=== PATIENT | male | born 1965 | race Caucasian/White ===

== ENCOUNTER 2018-07-20 19:29 | Inpatient (IN) | payer OTHER ==
[2018-07-20] MEDS ORDERED: LORazepam 2 MG/ML SDV VIAL IVPUSH ONE ×3 (19:35→23:00)
[2018-07-20] MEDS ORDERED: chlordiazePOXIDE HCL 25 MG CAPSULE PO ONE (19:36)
--- NOTE | 2018-07-20 19:39 | PDOC ---
History of Present Illness - General Stated Complaint: SEIZURE Time Seen by Provider: 07/20/18 19:31 - History of Present Illness Initial Comments: 53 year old male with PMH of EtOH abuse and seizure history (on Keppra) with history of withdrawal symptoms as well (denies hospitalization for these) presenting for witnessed seizure at [facility]. He presented there to be detoxed and began seizing in the hallway while in a chair that lasted for 6 minutes and . He states he did not fall today but did fall two weeks ago and points to a large left sided scalp hematoma. States he had a head CT at that time and did not have any sign of bleeding inside of his head. He also states that he hasn't taken his Keppra in 2 weeks. His last seizure he states was 6 months ago. His last drink was three days ago. He was not seizing on presentation to our ED but was tremulous. present for alcohol detox with current tremors noted upon rest. Denies fevers, chills, nausea, vomiting, diarrhea, SOB, or other symptoms. 07/20/18 19:36 Past History - Past Medical History Allergies/Adverse Reactions: Allergies Allergy/AdvReac Type Severity Reaction Status Date / Time No Known Allergies Allergy Verified 07/20/18 20:58 Home Medications: Ambulatory Orders Levetiracetam [Keppra] 250 mg PO DAILY 07/20/18 Review of Systems - Review of Systems Constitutional: No: Chills, Diaphoresis, Fever, Loss of Appetite HEENTM: No: Blurred Vision, Tearing, Recent change in vision Respiratory: No: Cough, Orthopnea, Shortness of Breath Cardiac (ROS): No: Chest Pain, Edema, Irregular Heart Rate ABD/GI: No: Diarrhea, Nausea, Vomiting : No: Burning, Dysuria Musculoskeletal: No: Joint Pain, Joint Swelling Integumentary: Yes: Lesions, Lumps Neurological: Yes: Seizure. No: Headache, Numbness, Paresthesia Hematologic/Lymphatic: Yes: Easy Bleeding *Physical Exam - Physical Exam General Appearance: Yes: Nourished, Appropriately Dressed, Apparent Distress, Mild Distress HEENT: positive: EOMI, ABELARDO, Normal Voice. negative: Normal ENT Inspection ( Right eye lateral scleral injection with EOM intact and gross visual suarez intact.) Neck: positive: Trachea midline, Normal Thyroid, Supple. negative: Tender, Rigid Respiratory/Chest: positive: Lungs Clear, Normal Breath Sounds. negative: Chest Tender, Respiratory Distress Cardiovascular: positive: Regular Rhythm, Tachycardia. negative: Regular Rate Gastrointestinal/Abdominal: positive: Normal Bowel Sounds, Flat, Soft. negative : Tender Lymphatic: negative: Adenopathy, Tenderness Extremity: positive: Normal Inspection, Normal Range of Motion. negative: Tender Integumentary: positive: Normal Color, Dry, Warm Neurologic: positive: Fully Oriented, Alert, Normal Mood/Affect, Normal Response , Motor Strength 5/5, Other (tremulous) ED Treatment Course - LABORATORY CBC & Chemistry Diagram: 07/20/18 20:15 07/20/18 20:15 - RADIOLOGY Radiology Studies Ordered: Category Date Time Status HEAD CT (STROKE) [CT] Stat CT Scan 07/20/18 19:31 Ordered Medical Decision Making - Medical Decision Making 53 year old male with history of ETOH abuse and seizures admitting to last drink 3 days ago and last dose of Keppra was two weeks ago because he ran out. He hasn't seized in our ED. His potassium was 3.0. He was keppra loaded 1 gram, given Ativan 2 + 2 IV for tremulousness and 50 of librium PO. Highest concern was for withdrawal seizures so patient discussed with Latoya and brought in for withdrawal. 07/20/18 21:43 *DC/Admit/Observation/Transfer Diagnosis at time of Disposition: Seizures Alcohol withdrawal Qualifiers: Complication of substance-induced condition: uncomplicated Qualified Code(s): F10.230 - Alcohol dependence with withdrawal, uncomplicated - Discharge Dispostion Condition at time of disposition: Stable Decision to Admit order: Yes - Referrals - Patient Instructions - Post Discharge Activity
[2018-07-20] MEDS ORDERED: levETIRAcetam 500 MG/5 ML INJECTION VIAL IVPB ONE (19:40)
[2018-07-20] MEDS ORDERED: LORazepam 2 MG/ML SDV VIAL ONE ×3 (19:41→23:56)
--- NOTE | 2018-07-20 20:07 | PDOC ---
Attending Attestation - HPI HPI: 07/20/18 20:43 The patient is a 53 year old male with a PMH of EtOH abuse and seizure (on Keppra) presents to the ER s/p witnessed seizure at [facility] prior to arrival. [facility] reports the patient was seizing in his chair and returned to his baseline after approximately 6 minutes. Patient denies falling or head trauma, but unknown if the history is accurate. Patient is currently tremulous in the ER. Patient notes his last alcoholic drink was 3 days ago. He also reports his last dose of keppra was 2 weeks ago. He states he fell 2 weeks ago and now has a hematoma on the right forehead. Allergies: NKDA Social Hx: Alcohol abuse. No reported drug or cigarette use. Surgical Hx: None reported <Jeimy Esparza - Last Filed: 07/20/18 20:53> - Resident Resident Name: Dimitris Bo - ED Attending Attestation I have performed the following: I have examined & evaluated the patient, The case was reviewed & discussed with the resident, I agree w/resident's findings & plan - Physicial Exam PE: 07/20/18 23:27 Agree with resident's exam - Critical Care Time Total Critical Care Time: 90 Critical Care Statement: The care of this patient involved high complexity decision making to prevent further life threatening deterioration of the patient 's condition and/or to evaluate & treat vital organ system(s) failure or risk of failure. - Medical Decision Making 07/20/18 23:27 53-year-old male who appears older than stated age with witnessed seizure at the alcohol detox facility while attempting to register CT scan of the brain showed no acute traumatic injury Patient arrived tachycardic and hypertensive with obvious tremor consistent with alcohol withdrawal syndrome Ativan 2 mg IV push given 3 as well as Librium 50 mg by mouth and a banana bag Patient admitted to medical service to a monitored bed for further management <Rebecca Marsh - Last Filed: 07/20/18 23:28>
[2018-07-20 20:16] VITALS: BMI 32.8
[2018-07-20 20:36] LABS: EOS % 0.4 % (0-4.5); HEMATOCRIT 35.5 % (35.4-49); HEMOGLOBIN 11.8 GM/dL (11.7-16.9); MCH 25.9 pg (25.7-33.7); MCHC 33.1 g/dl (32.0-35.9); MEAN CELL VOLUME 78.3 fl (80-96); MEAN PLT VOLUME 8.4 fl (7.5-11.1); PLATELET COUNT 30 K/MM3 (134-434); RBC 4.54 M/mm3 (4.00-5.60); RDW 20.7 % (11.9-15.9)
[2018-07-20 20:47] LABS: LYMPH % 8.1 % (8-40); MONO % 12.5 % (3.8-10.2); NEUT % 77.7 % (42.8-82.8)
[2018-07-20 20:50] LABS: WHITE BLOOD COUNT 3.3 K/mm3 (4.0-10.0)
[2018-07-20] MEDS ORDERED: ACETAMINOPHEN 500 MG TABLET (FP) PO ONE (20:50)
[2018-07-20] MEDS ORDERED: ACETAMINOPHEN 325 MG TABLET (FP) ONE (20:54)
[2018-07-20 20:58] LABS: ALBUMIN 3.1 g/dl (3.4-5.0); ALK PHOS 127 U/L (45-117); ANION GAP 18 MMOL/L (8-16); BILIRUBIN,TOTAL 3.2 mg/dL (0.2-1); BLOOD UREA NITROGEN 6 mg/dL (7-18); CALCIUM 8.4 mg/dL (8.5-10.1); CHLORIDE 93 mmol/L (98-107); CO2 21 mmol/L (21-32); CREATININE 0.8 mg/dL (0.55-1.3); GLUCOSE,RANDOM 118 mg/dL (74-106); SGOT/AST 188 U/L (15-37); SGPT/ALT 55 U/L (13-61); SODIUM 132 mmol/L (136-145); TOT PROT 7.2 g/dl (6.4-8.2)
[2018-07-20 21:05] LABS: ANISOCYTOSIS 2+; PLATELET ESTIMATE DECREASED; TARGET CELLS FEW
[2018-07-20] MEDS ORDERED: FOLIC ACID INJECTION - 1 MG, THIAMINE HCL 100 MG, MULTIVIT INJECTION ADULT 10 ML in SOD... IVPB ONE (21:23)
[2018-07-20] MEDS ORDERED: POTASSIUM CHLORIDE TABS 20 MEQ TABLET.ER (FP) PO ONE ×2 (21:23→22:20)
[2018-07-20] MEDS ORDERED: SODIUM CHLORIDE 0.9% 500 ML INFUS.BAG IV ONE (21:25)
[2018-07-20 21:31] LABS: INR 1.18 (0.83-1.09)
--- NOTE | 2018-07-20 21:44 | HP ---
Admitting History and Physical - Primary Care Physician PCP: Chela Klein - Admission History of Present Illness: 53 year old male with PMH of EtOH abuse and seizure history (on Keppra) with history of withdrawal symptoms as well (denies hospitalization for these) presenting for witnessed seizure at [facility]. He presented there to be detoxed and began seizing in the hallway while in a chair that lasted for 6 minutes and . He states he did not fall today but did fall two weeks ago and points to a large left sided scalp hematoma. States he had a head CT at that time and did not have any sign of bleeding inside of his head. He also states that he hasn't taken his Keppra in 2 weeks. His last seizure he states was 6 months ago. His last drink was three days ago. He was not seizing on presentation to our ED but was tremulous. present for alcohol detox with current tremors noted upon rest. - Smoking History Smoking history: Current every day smoker Have you smoked in the past 12 months: Yes Aproximately how many cigarettes per day: 20 - Alcohol/Substance Use Hx Alcohol Use: Yes Home Medications - Allergies Allergies/Adverse Reactions: Allergies Allergy/AdvReac Type Severity Reaction Status Date / Time No Known Allergies Allergy Verified 07/20/18 20:58 - Home Medications Home Medications: Ambulatory Orders Levetiracetam [Keppra] 250 mg PO DAILY 07/20/18 Physical Examination Vital Signs: Vital Signs Temperature 98.9 F 07/20/18 19:29 Pulse Rate 118 H 07/20/18 19:29 Respiratory Rate 18 07/20/18 19:29 Blood Pressure 181/93 H 07/20/18 19:29 O2 Sat by Pulse Oximetry (%) 99 07/20/18 20:34 Constitutional: Yes: Calm HENT: Yes: Other (bump on R frontal, fore head) Cardiovascular: Yes: Regular Rate and Rhythm, Tachycardia Respiratory: Yes: CTA Bilaterally Gastrointestinal: Yes: Normal Bowel Sounds Extremities: Yes: WNL Edema: Yes Neurological: Yes: Alert Labs: CBC, BMP 07/20/18 20:15 07/20/18 20:15 Imaging - Results Cat Scan: Report Reviewed Problem List - Problems (1) ETOH abuse Assessment/Plan: monitor librium detox consult Code(s): F10.10 - ALCOHOL ABUSE, UNCOMPLICATED (2) EtOH dependence Code(s): F10.20 - ALCOHOL DEPENDENCE, UNCOMPLICATED (3) Acute drug withdrawal syndrome Assessment/Plan: prn ativan Code(s): F19.239 - OTH PSYCHOACTIVE SUBSTANCE DEPENDENCE WITH WITHDRAWAL, UNSP Assessment/Plan Laboratory Tests 07/20/18 07/20/18 07/20/18 20:15 20:15 20:15 WBC 3.3 L RBC 4.54 Hgb 11.8 Hct 35.5 MCV 78.3 L MCH 25.9 MCHC 33.1 RDW 20.7 H Plt Count 30 L* MPV 8.4 Absolute Neuts (auto) 2.6 Neutrophils % 77.7 Lymphocytes % 8.1 Monocytes % 12.5 H Eosinophils % 0.4 Basophils % 1.0 Nucleated RBC % 0 Platelet Estimate Decreased Platelet Comment No clumping noted Anisocytosis 2+ Target Cells Few PT with INR INR Sodium 132 L Potassium 3.0 L Chloride 93 L Carbon Dioxide 21 Anion Gap 18 H BUN 6 L Creatinine 0.8 Creat Clearance w eGFR > 60 Random Glucose 118 H Lactic Acid 10.2 H* Calcium 8.4 L Total Bilirubin 3.2 H AST 188 H ALT 55 Alkaline Phosphatase 127 H Total Protein 7.2 Albumin 3.1 L Alcohol, Quantitative 37.4 H 07/20/18 20:50 WBC RBC Hgb Hct MCV MCH MCHC RDW Plt Count MPV Absolute Neuts (auto) Neutrophils % Lymphocytes % Monocytes % Eosinophils % Basophils % Nucleated RBC % Platelet Estimate Platelet Comment Anisocytosis Target Cells PT with INR 14.00 H INR 1.18 H Sodium Potassium Chloride Carbon Dioxide Anion Gap BUN Creatinine Creat Clearance w eGFR Random Glucose Lactic Acid Calcium Total Bilirubin AST ALT Alkaline Phosphatase Total Protein Albumin Alcohol, Quantitative Active Medications Generic Name Dose Route Start Last Admin Trade Name Freq PRN Reason Stop Dose Admin Folic Acid 1 mg/ Thiamine HCl 1,000 mls @ 125 mls/hr 07/20/18 21:23 100 mg/ Multivitamins/Minerals IVPB 07/21/18 05:22 10 ml/ Sodium Chloride ONCE ONE Active Medications Generic Name Dose Route Start Last Admin Trade Name Freq PRN Reason Stop Dose Admin Chlordiazepoxide HCl 50 mg 07/21/18 00:00 07/21/18 12:43 Librium - PO 50 mg Q6HPO EDITH Administration Folic Acid 1 mg 07/21/18 10:00 07/21/18 09:49 Folic Acid - PO 1 mg DAILY EDITH Administration Levetiracetam 250 mg 07/21/18 10:00 07/21/18 09:49 Keppra - PO 250 mg DAILY EDITH Administration Thiamine HCl 100 mg 07/21/18 10:00 07/21/18 09:49 Vitamin B1 - PO 100 mg DAILY EDITH Administration
[2018-07-20 22:03] LABS: MAGNESIUM 1.7 mg/dL (1.8-2.4)
[2018-07-20] MEDS: chlordiazePOXIDE HCL 25 MG CAPSULE PO SCH (22:20)
[2018-07-21] MEDS ORDERED: LORazepam 2 MG/ML SDV VIAL ONE (06:26)
[2018-07-21 07:53] LABS: BASO % 1.3 % (0-2.0); EOS % 0.8 % (0-4.5); HEMATOCRIT 34.7 % (35.4-49); HEMOGLOBIN 11.6 GM/dL (11.7-16.9); LYMPH % 39.6 % (8-40); MCH 25.9 pg (25.7-33.7); MCHC 33.4 g/dl (32.0-35.9); MEAN CELL VOLUME 77.5 fl (80-96); MEAN PLT VOLUME 8.7 fl (7.5-11.1); NEUT % 48.3 % (42.8-82.8); RBC 4.48 M/mm3 (4.00-5.60); RDW 20.6 % (11.9-15.9); WHITE BLOOD COUNT 2.6 K/mm3 (4.0-10.0)
[2018-07-21 07:59] LABS: PLATELET COUNT 22 K/MM3 (134-434)
[2018-07-21 08:00] LABS: ALBUMIN 2.9 g/dl (3.4-5.0); ALK PHOS 110 U/L (45-117); ANION GAP 9 MMOL/L (8-16); BILIRUBIN,TOTAL 4.8 mg/dL (0.2-1); BLOOD UREA NITROGEN 8 mg/dL (7-18); CALCIUM 7.9 mg/dL (8.5-10.1); CHLORIDE 97 mmol/L (98-107); CO2 28 mmol/L (21-32); CREATININE 0.7 mg/dL (0.55-1.3); GLUCOSE,RANDOM 84 mg/dL (74-106); SGOT/AST 154 U/L (15-37); SGPT/ALT 47 U/L (13-61); SODIUM 134 mmol/L (136-145); TOT PROT 6.8 g/dl (6.4-8.2)
[2018-07-21] MEDS ORDERED: chlordiazePOXIDE HCL 25 MG CAPSULE ONE ×2 (08:46→12:40)
[2018-07-21] MEDS: chlordiazePOXIDE HCL 25 MG CAPSULE PO SCH ×3 (08:49→18:31)
[2018-07-21 09:09] LABS: PH,URINE 7.5 (5.0-8.0); URINE APPEARANCE Clear; URINE BILIRUBIN 1+ (<2.0 mg/dL); URINE COLOR Dark yellow; URINE GLUCOSE (UA) Negative (NEGATIVE); URINE KETONE Negative (NEGATIVE); URINE LEUK ESTERASE Negative (NEGATIVE); URINE NITRITE Negative (NEGATIVE); URINE PROTEIN 2+ (NEGATIVE); URINE UROBILINOGEN 4.0 E.U/dl mg/dL (0.2-1.0)
[2018-07-21] MEDS: THIAMINE HCL 100 MG TABLET (FP) PO SCH (09:49)
[2018-07-21] MEDS: FOLIC ACID 1 MG TABLET (FP) PO SCH (09:49)
[2018-07-21] MEDS: levETIRAcetam 250 MG TABLET (FP) PO SCH (09:49)
--- NOTE | 2018-07-21 12:31 | CONSULT ---
Consultation: REQUESTING PROVIDER: Dr Yelena Klein CONSULT REQUEST: We have been asked to medically evaluate this patient for thrombocytopenia. HISTORY OF PRESENT ILLNESS: 53 yo male with a history of ETOH abuse, seizure disorder, sent from [facility] due to seizure at facility resulting in fall and head injury. As per patient last drink was three days ago, and he has not taken his seizure medication for two weeks. Patient was given ativan, and loaded with keppra. FOunf to thrombocytopenic and leukopenic. Denies fever, chills, n, v, d. Admits to hand tremors. REVIEW OF SYSTEMS: CONSTITUTIONAL: Absent: fever, chills, diaphoresis, generalized weakness, malaise, loss of appetite, weight change HEENT: Absent: rhinorrhea, nasal congestion, throat pain, throat swelling, difficulty swallowing, mouth swelling, ear pain, eye pain, visual changes CARDIOVASCULAR: Absent: chest pain, syncope, palpitations, irregular heart rate, lightheadedness , peripheral edema RESPIRATORY: Absent: cough, shortness of breath, dyspnea with exertion, orthopnea, wheezing, stridor, hemoptysis GASTROINTESTINAL: Absent: abdominal pain, abdominal distension, nausea, vomiting, diarrhea, constipation, melena, hematochezia GENITOURINARY: Absent: dysuria, frequency, urgency, hesitancy, hematuria, flank pain, genital pain MUSCULOSKELETAL: Absent: myalgia, arthralgia, joint swelling, back pain, neck pain SKIN: Absent: rash, itching, pallor HEMATOLOGIC/IMMUNOLOGIC: Absent: easy bleeding, easy bruising, lymphadenopathy, frequent infections ENDOCRINE: Absent: unexplained weight gain, unexplained weight loss, heat intolerance, cold intolerance NEUROLOGIC: Absent: headache, focal weakness or paresthesias, dizziness, unsteady gait, seizure, mental status changes, bladder or bowel incontinence PSYCHIATRIC: Absent: anxiety, depression, suicidal or homicidal ideation, hallucinations. PHYSICAL EXAMINATION Vital Signs - 24 hr 07/20/18 07/20/18 07/21/18 19:29 20:34 04:03 Temperature 98.9 F Pulse Rate 118 H Pulse Rate [ 108 H Right] Respiratory 18 20 Rate Blood Pressure 181/93 H Blood Pressure 156/99 [Left Arm] O2 Sat by Pulse 97 99 99 Oximetry (%) 07/21/18 07/21/18 07:18 11:03 Temperature 99.5 F Pulse Rate Pulse Rate [ 114 H Right] Respiratory 18 18 Rate Blood Pressure Blood Pressure 155/89 [Left Arm] O2 Sat by Pulse 99 99 Oximetry (%) GENERAL: Awake, alert, and fully oriented, in no acute distress. HEAD:lare right hematoma on forhean EYES: Pupils equal, round and reactive to light, extraocular movements intact, sclera anicteric, conjunctiva clear. No lid lag. EARS, NOSE, THROAT: Ears normal, nares patent, oropharynx clear without exudates. Moist mucous membranes. NECK: Normal range of motion, supple without lymphadenopathy, JVD, or masses. LUNGS: Breath sounds equal, clear to auscultation bilaterally. No wheezes, and no crackles. No accessory muscle use. HEART: Regular rate and rhythm, normal S1 and S2 without murmur, rub or gallop. ABDOMEN: globose abdomen; MUSCULOSKELETAL: Normal range of motion at all joints. No bony deformities or tenderness. No CVA tenderness. UPPER EXTREMITIES: 2+ pulses, warm, well-perfused. No cyanosis. No clubbing. Cap refill <2 seconds. No peripheral edema. LOWER EXTREMITIES: 2+ pulses, warm, well-perfused. No calf tenderness. No peripheral edema. NEUROLOGICAL: tremulos bilateral hands; PSYCHIATRIC: Cooperative. Good eye contact. Appropriate mood and affect. SKIN: Warm, dry, normal turgor, no rashes or lesions noted. Laboratory Results - last 24 hr 07/20/18 07/20/18 07/20/18 20:15 20:15 20:15 WBC 3.3 L RBC 4.54 Hgb 11.8 Hct 35.5 MCV 78.3 L MCH 25.9 MCHC 33.1 RDW 20.7 H Plt Count 30 L* MPV 8.4 Absolute Neuts (auto) 2.6 Neutrophils % 77.7 Lymphocytes % 8.1 Monocytes % 12.5 H Eosinophils % 0.4 Basophils % 1.0 Nucleated RBC % 0 Platelet Estimate Decreased Platelet Comment No clumping noted Anisocytosis 2+ Target Cells Few PT with INR INR Sodium 132 L Potassium 3.0 L Chloride 93 L Carbon Dioxide 21 Anion Gap 18 H BUN 6 L Creatinine 0.8 Creat Clearance w eGFR > 60 Random Glucose 118 H Lactic Acid 10.2 H* Calcium 8.4 L Phosphorus 3.0 Magnesium 1.7 L Total Bilirubin 3.2 H AST 188 H ALT 55 Alkaline Phosphatase 127 H Total Protein 7.2 Albumin 3.1 L Urine Color Urine Appearance Urine pH Ur Specific [place] Urine Protein Urine Glucose (UA) Urine Ketones Urine Blood Urine Nitrite Urine Bilirubin Urine Urobilinogen Ur Leukocyte Esterase Urine WBC (Auto) Urine RBC (Auto) Alcohol, Quantitative 37.4 H 07/20/18 07/21/18 07/21/18 20:50 06:00 06:46 WBC 2.6 L RBC 4.48 Hgb 11.6 L Hct 34.7 L MCV 77.5 L MCH 25.9 MCHC 33.4 RDW 20.6 H Plt Count 22 L* D MPV 8.7 Absolute Neuts (auto) 1.3 L Neutrophils % 48.3 D Lymphocytes % 39.6 D Monocytes % 10.0 Eosinophils % 0.8 D Basophils % 1.3 Nucleated RBC % 0 Platelet Estimate Platelet Comment Anisocytosis Target Cells PT with INR 14.00 H INR 1.18 H Sodium 134 L Potassium 3.0 L Chloride 97 L Carbon Dioxide 28 Anion Gap 9 BUN 8 Creatinine 0.7 Creat Clearance w eGFR > 60 Random Glucose 84 Lactic Acid Calcium 7.9 L Phosphorus Magnesium Total Bilirubin 4.8 H AST 154 H ALT 47 Alkaline Phosphatase 110 Total Protein 6.8 Albumin 2.9 L Urine Color Urine Appearance Urine pH Ur Specific [place] Urine Protein Urine Glucose (UA) Urine Ketones Urine Blood Urine Nitrite Urine Bilirubin Urine Urobilinogen Ur Leukocyte Esterase Urine WBC (Auto) Urine RBC (Auto) Alcohol, Quantitative 07/21/18 07:42 WBC RBC Hgb Hct MCV MCH MCHC RDW Plt Count MPV Absolute Neuts (auto) Neutrophils % Lymphocytes % Monocytes % Eosinophils % Basophils % Nucleated RBC % Platelet Estimate Platelet Comment Anisocytosis Target Cells PT with INR INR Sodium Potassium Chloride Carbon Dioxide Anion Gap BUN Creatinine Creat Clearance w eGFR Random Glucose Lactic Acid Calcium Phosphorus Magnesium Total Bilirubin AST ALT Alkaline Phosphatase Total Protein Albumin Urine Color Dark yellow Urine Appearance Clear Urine pH 7.5 Ur Specific [place] 1.015 Urine Protein 2+ H Urine Glucose (UA) Negative Urine Ketones Negative Urine Blood 2+ H Urine Nitrite Negative Urine Bilirubin 1+ H Urine Urobilinogen 4.0 e.u/dl Ur Leukocyte Esterase Negative Urine WBC (Auto) <1 Urine RBC (Auto) 10 Alcohol, Quantitative Active Medications Generic Name Dose Route Start Last Admin Trade Name Freq PRN Reason Stop Dose Admin Chlordiazepoxide HCl 50 mg 07/21/18 00:00 07/21/18 08:49 Librium - PO 50 mg Q6HPO EDITH Administration Folic Acid 1 mg 07/21/18 10:00 07/21/18 09:49 Folic Acid - PO 1 mg DAILY EDITH Administration Levetiracetam 250 mg 07/21/18 10:00 07/21/18 09:49 Keppra - PO 250 mg DAILY EDITH Administration Thiamine HCl 100 mg 07/21/18 10:00 07/21/18 09:49 Vitamin B1 - PO 100 mg DAILY EDITH Administration ASSESSMENT/PLAN: seizure etoh abuse leukopenia lactic acidosis thrombocytopenia hypokalemia -thrombocytopenia and leukopenia most likey due to alcohol use ; secondary to acute toxic effect of alcohol, liver disease, hypersplenism, -abdominal US eval spleen and liver Dispo: We will continue to follow the patient. Thank you for this consultative opportunity. Visit type - Emergency Visit Emergency Visit: Yes ED Registration Date: 07/21/18 Care time: The patient presented to the Emergency Department on the above date and was hospitalized for further evaluation of their emergent condition. - New Patient This patient is new to me today: Yes Date on this admission: 07/22/18 - Critical Care Critical Care patient: No
--- NOTE | 2018-07-21 13:13 | PN ---
Progress Note, Physician - Current Medication List Current Medications: Active Medications Chlordiazepoxide HCl (Librium -) 50 mg PO Q6HPO [facility] Last Admin: 07/21/18 12:43 Dose: 50 mg Folic Acid (Folic Acid -) 1 mg PO DAILY [facility] Last Admin: 07/21/18 09:49 Dose: 1 mg Levetiracetam (Keppra -) 250 mg PO DAILY [facility] Last Admin: 07/21/18 09:49 Dose: 250 mg Thiamine HCl (Vitamin B1 -) 100 mg PO DAILY [facility] Last Admin: 07/21/18 09:49 Dose: 100 mg - Objective Vital Signs: Vital Signs Temperature 99.5 F 07/21/18 11:03 Pulse Rate 114 H 07/21/18 11:03 Respiratory Rate 18 07/21/18 11:03 Blood Pressure 155/89 07/21/18 11:03 O2 Sat by Pulse Oximetry (%) 99 07/21/18 11:03 Constitutional: Yes: No Distress HENT: Yes: Other (bruise /swelling on fore head) Neck: Yes: Supple Cardiovascular: Yes: Regular Rate and Rhythm Respiratory: Yes: CTA Bilaterally Gastrointestinal: Yes: Normal Bowel Sounds Extremities: Yes: WNL Edema: No Peripheral Pulses WNL: Yes Neurological: Yes: Alert Labs: CBC, BMP 07/21/18 06:00 07/21/18 06:46 INR, PTT INR 1.18 (0.83-1.09) H 07/20/18 20:50 Problem List - Problems (1) ETOH abuse Assessment/Plan: monitor librium detox consult Code(s): F10.10 - ALCOHOL ABUSE, UNCOMPLICATED (2) EtOH dependence Code(s): F10.20 - ALCOHOL DEPENDENCE, UNCOMPLICATED (3) Acute drug withdrawal syndrome Assessment/Plan: prn ativan Code(s): F19.239 - OTH PSYCHOACTIVE SUBSTANCE DEPENDENCE WITH WITHDRAWAL, UNSP
--- NOTE | 2018-07-21 16:30 | EKG ---
Test Reason : Blood Pressure : / mmHG Vent. Rate : 113 BPM Atrial Rate : 113 BPM P-R Int : 170 ms QRS Dur : 094 ms QT Int : 350 ms P-R-T Axes : 050 048 053 degrees QTc Int : 480 ms POOR DATA QUALITY, INTERPRETATION MAY BE ADVERSELY AFFECTED Suspect unspecified pacemaker failure SINUS TACHYCARDIA LEFT VENTRICULAR HYPERTROPHY WITH REPOLARIZATION ABNORMALITY ST ELEVATION, CONSIDER EARLY REPOLARIZATION, PERICARDITIS, OR INJURY ABNORMAL ECG NO PREVIOUS ECGS AVAILABLE Confirmed by Luigi Erickson ([id number]) on 07/21/2018 4:30:01 PM Referred By: Confirmed By:Luigi Erickson
--- NOTE | 2018-07-21 19:09 | PN ---
Teaching Attending Note Name of Resident: Juliette Gomes ATTENDING PHYSICIAN STATEMENT I saw and evaluated the patient. I reviewed the resident's note and discussed the case with the resident. I agree with the resident's findings and plan as documented. SUBJECTIVE: Patient seen and examined Hx of alcohol abuse . Last drank 2 days earlier Had seizure Head trauma --2 weeks ago with fall and one week ago Last Vital Signs Temp Pulse Resp BP Pulse Ox 99.8 F H 95 H 18 151/91 96 07/21/18 17:01 07/21/18 17:01 07/21/18 18:24 07/21/18 17:01 07/21/18 18:24 HEENT: DEANGELO, EOM Intactright forehead hematoma Oropharynx: No thrush, No mucositis Neck: Supple Nodes: Without adenopathy Cor: RSR, No murmurs, No gallops Lungs: Clear to P&A Abd: Soft, Normal bowel sound, liver 8 cm below RCM, spleen 2 cm below LCM, pulsatile RCM below liver with bruit testes descended , uncircumcised Ext:No significant edema, left knee ecchymoses and scar Skin: No rashes, Integument intact, numerous tatoos CBC, BMP 07/21/18 06:00 07/21/18 06:46 Current Medications Generic Name Dose Route Start Last Admin Trade Name Freq PRN Reason Stop Dose Admin Chlordiazepoxide HCl 50 mg 07/21/18 00:00 07/21/18 18:31 Librium - PO 50 mg Q6HPO EDITH Administration Folic Acid 1 mg 07/21/18 10:00 07/21/18 09:49 Folic Acid - PO 1 mg DAILY EDITH Administration Levetiracetam 250 mg 07/21/18 10:00 07/21/18 09:49 Keppra - PO 250 mg DAILY EDITH Administration Thiamine HCl 100 mg 07/21/18 10:00 07/21/18 09:49 Vitamin B1 - PO 100 mg DAILY EDITH Administration OBJECTIVE: ASSESSMENT AND PLAN: Impression : Alcohol abuse Thrombocytopenia secondary to acute toxic effect of alcohol, liver disease, hypersplenism, +/_ meds Leukopenia, secondary to acute toxic effect of alcohol, liver disease, hypersplenism, +/_ meds Pulsatile area below liver --R/o aneurysm - review ultrasound Abnormal GB-- GI assessment -HIDA Plan: monitor CBC, coags CT of liver/spleen AFP.
[2018-07-22] MEDS: chlordiazePOXIDE HCL 25 MG CAPSULE PO SCH ×4 (00:01→18:15)
[2018-07-22] MEDS: THIAMINE HCL 100 MG TABLET (FP) PO SCH (10:41)
[2018-07-22] MEDS: FOLIC ACID 1 MG TABLET (FP) PO SCH (10:41)
[2018-07-22] MEDS: levETIRAcetam 250 MG TABLET (FP) PO SCH (10:41)
[2018-07-22] MEDS: LORazepam 1 MG TABLET PO PRN ×2 (14:22→22:05)
--- NOTE | 2018-07-22 16:04 | PN ---
Physical Exam: SUBJECTIVE: Patient seen and examined; no new complainants; less tremulous; was drowsy/sleepy during encounter; s/p librium OBJECTIVE: Vital Signs Period Temp Pulse Resp BP Sys/Boone Pulse Ox Last 24 Hr 98 F-99.8 F 78-114 18-20 136-151/68-96 96-99 GENERAL: drowsy; arsouable HEAD: large hemtoma of right scalp LUNGS: Breath sounds equal, clear to auscultation bilaterally, no wheezes, no crackles, no accessory muscle use. HEART: Regular rate and rhythm, S1, S2 without murmur, rub or gallop. ABDOMEN: globose abdomen with hepatomegaly; bs+ EXTREMITIES: 2+ pulses, warm, well-perfused, no edema. scattered areas of echymosis of left anterior though NEUROLOGICAL: lethargic, will not wake up to follow commands Active Medications Generic Name Dose Route Start Last Admin Trade Name Freq PRN Reason Stop Dose Admin Chlordiazepoxide HCl 50 mg 07/21/18 00:00 07/22/18 12:09 Librium - PO 50 mg Q6HPO EDITH Administration Folic Acid 1 mg 07/21/18 10:00 07/22/18 10:41 Folic Acid - PO 1 mg DAILY EDITH Administration Levetiracetam 250 mg 07/21/18 10:00 07/22/18 10:41 Keppra - PO 250 mg DAILY EDITH Administration Lorazepam 1 mg 07/21/18 20:38 07/22/18 14:22 Ativan - PO 1 mg Q4H PRN Administration AGITATION Thiamine HCl 100 mg 07/21/18 10:00 07/22/18 10:41 Vitamin B1 - PO 100 mg DAILY EDITH Administration ASSESSMENT/PLAN: seizure etoh abuse leukopenia lactic acidosis thrombocytopenia hypokalemia -thrombocytopenia and leukopenia most likely due to alcohol use ;liver disease, hypersplenism, -abdominal US eval spleen and liver showing moderately dense echotexture compatible with hepatocellular disease; -trend LFTS, cbc; stat lab draw -will continue to follow Visit type - Emergency Visit Emergency Visit: Yes ED Registration Date: 07/21/18 Care time: The patient presented to the Emergency Department on the above date and was hospitalized for further evaluation of their emergent condition. - New Patient This patient is new to me today: No - Critical Care Critical Care patient: No
--- NOTE | 2018-07-22 16:55 | PN ---
Progress Note, Physician History of Present Illness: was agitated today as per rn - Current Medication List Current Medications: Active Medications Chlordiazepoxide HCl (Librium -) 50 mg PO Q6HPO [facility] Last Admin: 07/22/18 12:09 Dose: 50 mg Folic Acid (Folic Acid -) 1 mg PO DAILY [facility] Last Admin: 07/22/18 10:41 Dose: 1 mg Levetiracetam (Keppra -) 250 mg PO DAILY [facility] Last Admin: 07/22/18 10:41 Dose: 250 mg Lorazepam (Ativan -) 1 mg PO Q4H PRN PRN Reason: AGITATION Last Admin: 07/22/18 14:22 Dose: 1 mg Thiamine HCl (Vitamin B1 -) 100 mg PO DAILY [facility] Last Admin: 07/22/18 10:41 Dose: 100 mg - Objective Vital Signs: Vital Signs Temperature 98.1 F 07/22/18 14:06 Pulse Rate 114 H 07/22/18 14:06 Respiratory Rate 20 07/22/18 10:46 Blood Pressure 146/96 07/22/18 14:06 O2 Sat by Pulse Oximetry (%) 98 07/22/18 09:00 Constitutional: Yes: No Distress HENT: Yes: Other (bump on forehead) Neck: Yes: Supple Cardiovascular: Yes: Regular Rate and Rhythm Respiratory: Yes: CTA Bilaterally Extremities: Yes: WNL Edema: No Peripheral Pulses WNL: Yes Neurological: Yes: Alert, Oriented Labs: CBC, BMP 07/21/18 06:46 INR, PTT INR 1.18 (0.83-1.09) H 07/20/18 20:50 Problem List - Problems (1) ETOH abuse Assessment/Plan: monitor librium..taper detox consult Code(s): F10.10 - ALCOHOL ABUSE, UNCOMPLICATED (2) EtOH dependence Code(s): F10.20 - ALCOHOL DEPENDENCE, UNCOMPLICATED (3) Acute drug withdrawal syndrome Assessment/Plan: prn ativan Code(s): F19.239 - OTH PSYCHOACTIVE SUBSTANCE DEPENDENCE WITH WITHDRAWAL, UNSP
[2018-07-22 17:38] LABS: BASO % 1.2 % (0-2.0); EOS % 1.1 % (0-4.5); HEMATOCRIT 35.2 % (35.4-49); HEMOGLOBIN 11.7 GM/dL (11.7-16.9); LYMPH % 11.4 % (8-40); MCH 26.1 pg (25.7-33.7); MCHC 33.4 g/dl (32.0-35.9); MEAN CELL VOLUME 78.4 fl (80-96); MEAN PLT VOLUME 8.3 fl (7.5-11.1); MONO % 12.1 % (3.8-10.2); NEUT % 74.2 % (42.8-82.8); PLATELET COUNT 35 K/MM3 (134-434); RDW 20.8 % (11.9-15.9); WHITE BLOOD COUNT 3.7 K/mm3 (4.0-10.0)
[2018-07-22 18:17] LABS: ALBUMIN 2.8 g/dl (3.4-5.0); ALK PHOS 144 U/L (45-117); ANION GAP 10 MMOL/L (8-16); BILIRUBIN,TOTAL 3.6 mg/dL (0.2-1); BLOOD UREA NITROGEN 13 mg/dL (7-18); CALCIUM 8.1 mg/dL (8.5-10.1); CHLORIDE 98 mmol/L (98-107); CO2 27 mmol/L (21-32); CREATININE 0.9 mg/dL (0.55-1.3); GLUCOSE,RANDOM 118 mg/dL (74-106); SGOT/AST 113 U/L (15-37); SGPT/ALT 42 U/L (13-61); SODIUM 135 mmol/L (136-145); TOT PROT 6.9 g/dl (6.4-8.2)
--- NOTE | 2018-07-22 18:23 | PN ---
Teaching Attending Note Name of Resident: Juliette Gomes ATTENDING PHYSICIAN STATEMENT I saw and evaluated the patient. I reviewed the resident's note and discussed the case with the resident. I agree with the resident's findings and plan as documented. SUBJECTIVE:Patient seen and examined Unchanged clinically Somewhat tremulous but no asterixis Last Vital Signs Temp Pulse Resp BP Pulse Ox 98.1 F 114 H 20 146/96 98 07/22/18 14:06 07/22/18 14:06 07/22/18 10:46 07/22/18 14:06 07/22/18 09:00 HEENT: DEANGELO, EOM Intact,conjunctival hemorrhage right eye Cor: RSR, No murmurs, No gallops Lungs: Clear to P&A Ext:No significant edema CBC, BMP 07/22/18 16:45 07/22/18 16:45 Current Medications Generic Name Dose Route Start Last Admin Trade Name Freq PRN Reason Stop Dose Admin Chlordiazepoxide HCl 50 mg 07/21/18 00:00 07/22/18 18:15 Librium - PO 50 mg Q6HPO [facility] Administration Folic Acid 1 mg 07/21/18 10:00 07/22/18 10:41 Folic Acid - PO 1 mg DAILY [facility] Administration Levetiracetam 250 mg 07/21/18 10:00 07/22/18 10:41 Keppra - PO 250 mg DAILY [facility] Administration Lorazepam 1 mg 07/21/18 20:38 07/22/18 14:22 Ativan - PO 1 mg Q4H PRN Administration AGITATION Thiamine HCl 100 mg 07/21/18 10:00 07/22/18 10:41 Vitamin B1 - PO 100 mg DAILY [facility] Administration OBJECTIVE:Impression: Alcohol substance abuse thrombocytopenia leukopenia hypersplenism To continue to monitor CBC, coags Direct toxic effect of alcohol, liver disease and hypersplenism all contributing to cytopenias ASSESSMENT AND PLAN:
[2018-07-22] MEDS: POTASSIUM CHLORIDE TABS 20 MEQ TABLET.ER (FP) PO SCH (18:48)
[2018-07-23] MEDS: chlordiazePOXIDE HCL 25 MG CAPSULE PO SCH ×6 (00:19→23:09)
[2018-07-23 07:13] LABS: ALBUMIN 2.7 g/dl (3.4-5.0); ALK PHOS 108 U/L (45-117); ANION GAP 11 MMOL/L (8-16); BILIRUBIN,TOTAL 4.3 mg/dL (0.2-1); BLOOD UREA NITROGEN 12 mg/dL (7-18); CALCIUM 8.4 mg/dL (8.5-10.1); CHLORIDE 99 mmol/L (98-107); CO2 27 mmol/L (21-32); CREATININE 0.7 mg/dL (0.55-1.3); GLUCOSE,RANDOM 88 mg/dL (74-106); SGOT/AST 86 U/L (15-37); SGPT/ALT 34 U/L (13-61); SODIUM 137 mmol/L (136-145); TOT PROT 6.1 g/dl (6.4-8.2)
[2018-07-23 07:16] LABS: BASO % 2.5 % (0-2.0); EOS % 1.9 % (0-4.5); HEMATOCRIT 32.7 % (35.4-49); HEMOGLOBIN 10.8 GM/dL (11.7-16.9); LYMPH % 13.7 % (8-40); MCHC 33.1 g/dl (32.0-35.9); MEAN CELL VOLUME 78.5 fl (80-96); MEAN PLT VOLUME 8.7 fl (7.5-11.1); MONO % 13.1 % (3.8-10.2); NEUT % 68.8 % (42.8-82.8); RBC 4.16 M/mm3 (4.00-5.60); RDW 20.8 % (11.9-15.9); WHITE BLOOD COUNT 3.2 K/mm3 (4.0-10.0)
[2018-07-23 07:29] LABS: PLATELET COUNT 36 K/MM3 (134-434)
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
[2018-07-23] MEDS: levETIRAcetam 250 MG TABLET (FP) PO SCH (09:00)
[2018-07-23] MEDS: LORazepam 1 MG TABLET PO PRN (09:00)
[2018-07-23] MEDS: THIAMINE HCL 100 MG TABLET (FP) PO SCH (09:01)
[2018-07-23] MEDS: FOLIC ACID 1 MG TABLET (FP) PO SCH (09:01)
[2018-07-23] MEDS: POTASSIUM CHLORIDE TABS 20 MEQ TABLET.ER (FP) PO SCH (09:06)
[2018-07-23] MEDS: chlordiazePOXIDE HCL 25 MG CAPSULE PO PRN ×2 (09:27→13:23)
--- NOTE | 2018-07-23 17:00 | PN ---
Progress Note, Physician History of Present Illness: was agitated today as per rn - Current Medication List Current Medications: Active Medications Chlordiazepoxide HCl (Librium -) 50 mg PO [id number] [facility] Stop: 07/24/18 05:01 Last Admin: 07/23/18 16:15 Dose: 50 mg Chlordiazepoxide HCl (Librium -) 25 mg PO [id number] [facility] Stop: 07/25/18 05:01 Chlordiazepoxide HCl (Librium -) 15 mg PO [id number] [facility] Stop: 07/26/18 05:01 Chlordiazepoxide HCl (Librium -) 25 mg PO Q4H PRN PRN Reason: WITHDRAWAL(CONT SUBST) Stop: 07/26/18 08:32 Last Admin: 07/23/18 13:23 Dose: 25 mg Chlordiazepoxide HCl (Librium -) 10 mg PO [id number] [facility] Stop: 07/27/18 05:01 Folic Acid (Folic Acid -) 1 mg PO DAILY [facility] Last Admin: 07/23/18 09:01 Dose: 1 mg Levetiracetam (Keppra -) 250 mg PO DAILY [facility] Last Admin: 07/23/18 09:00 Dose: 250 mg Potassium Chloride (K-Dur -) 40 meq PO DAILY [facility] Last Admin: 07/23/18 09:06 Dose: 40 meq Thiamine HCl (Vitamin B1 -) 100 mg PO DAILY [facility] Last Admin: 07/23/18 09:01 Dose: 100 mg - Objective Vital Signs: Vital Signs Temperature 99.7 F H 07/23/18 15:00 Pulse Rate 101 H 07/23/18 15:00 Respiratory Rate 18 07/23/18 15:00 Blood Pressure 134/95 07/23/18 15:00 O2 Sat by Pulse Oximetry (%) 95 07/23/18 10:00 Constitutional: Yes: No Distress HENT: Yes: Atraumatic Neck: Yes: Supple Cardiovascular: Yes: Regular Rate and Rhythm Respiratory: Yes: CTA Bilaterally Gastrointestinal: Yes: Normal Bowel Sounds Edema: No Peripheral Pulses WNL: Yes Neurological: Yes: Alert, Oriented Labs: CBC, BMP 07/23/18 05:30 07/23/18 05:30 INR, PTT INR 1.18 (0.83-1.09) H 07/20/18 20:50 Problem List - Problems (1) ETOH abuse Assessment/Plan: monitor librium..taper detox consult Code(s): F10.10 - ALCOHOL ABUSE, UNCOMPLICATED (2) EtOH dependence Code(s): F10.20 - ALCOHOL DEPENDENCE, UNCOMPLICATED (3) Acute drug withdrawal syndrome Assessment/Plan: prn ativan Code(s): F19.239 - OTH PSYCHOACTIVE SUBSTANCE DEPENDENCE WITH WITHDRAWAL, UNSP
[2018-07-24] MEDS: chlordiazePOXIDE HCL 25 MG CAPSULE PO PRN (02:49)
[2018-07-24] MEDS: chlordiazePOXIDE HCL 25 MG CAPSULE PO SCH ×3 (05:54→17:31)
[2018-07-24] MEDS: POTASSIUM CHLORIDE TABS 20 MEQ TABLET.ER (FP) PO SCH (09:36)
[2018-07-24] MEDS: levETIRAcetam 250 MG TABLET (FP) PO SCH (09:36)
[2018-07-24] MEDS: FOLIC ACID 1 MG TABLET (FP) PO SCH (09:37)
[2018-07-24] MEDS: THIAMINE HCL 100 MG TABLET (FP) PO SCH (09:37)
--- NOTE | 2018-07-24 13:50 | PN ---
Physical Exam: SUBJECTIVE: Patient seen and examined; no acute events; platelets slightly trending up OBJECTIVE: Vital Signs Period Temp Pulse Resp BP Sys/Boone Pulse Ox Last 24 Hr 97.7 F-99.7 F 89-101 18-22 134-154/86-99 95 GENERAL: The patient is lethargic; s/p librium HEAD: with large hematoma on right side of forehead LUNGS: Breath sounds equal, clear to auscultation bilaterally, no wheezes, no crackles, no accessory muscle use. HEART: Regular rate and rhythm, S1, S2 without murmur, rub or gallop. ABDOMEN: distended abdomen ; +hepatosplenomegaly EXTREMITIES: 2+ pulses, warm, well-perfused, no edema. NEUROLOGICAL: lethargic; opens eyes to name SKIN: Warm, dry, normal turgor, no rashes or lesions noted Laboratory Results - last 24 hr 07/20/18 07/22/18 20:15 05:30 Hct 33.5 L Folate 1396 Folate Hemolysate 467.7 Levetiracetam None detected Active Medications Generic Name Dose Route Start Last Admin Trade Name Freq PRN Reason Stop Dose Admin Chlordiazepoxide HCl 25 mg 07/24/18 11:00 07/24/18 12:14 Librium - PO 07/25/18 05:01 25 mg [id number] EDITH Administration Chlordiazepoxide HCl 15 mg 07/25/18 11:00 Librium - PO 07/26/18 05:01 [id number] EDITH Chlordiazepoxide HCl 25 mg 07/23/18 08:33 07/24/18 02:49 Librium - PO 07/26/18 08:32 25 mg Q4H PRN Administration WITHDRAWAL(CONT SUBST) Chlordiazepoxide HCl 10 mg 07/26/18 11:00 Librium - PO 07/27/18 05:01 [id number] EDITH Folic Acid 1 mg 07/21/18 10:00 07/24/18 09:37 Folic Acid - PO 1 mg DAILY [facility] Administration Levetiracetam 250 mg 07/21/18 10:00 07/24/18 09:36 Keppra - PO 250 mg DAILY [facility] Administration Potassium Chloride 40 meq 07/22/18 18:45 07/24/18 09:36 K-Dur - PO 40 meq DAILY [facility] Administration Thiamine HCl 100 mg 07/21/18 10:00 07/24/18 09:37 Vitamin B1 - PO 100 mg DAILY [facility] Administration ASSESSMENT/PLAN: This is a 53 year old male with alcohol abuse, seizures, was at [facility] for detox; presented after fall and seizure while at facility; found to be pancytopenic. seizure etoh abuse pancytopenia lactic acidosis hypokalemia -platelets improving; cytopenias due liver disease from alcohol -abdominal US eval spleen and liver showing moderately dense echotexture compatible with hepatocellular disease; -trend LFTS, cbc; coags Visit type - Emergency Visit Emergency Visit: Yes ED Registration Date: 07/21/18 Care time: The patient presented to the Emergency Department on the above date and was hospitalized for further evaluation of their emergent condition. - New Patient This patient is new to me today: No - Critical Care Critical Care patient: No
[2018-07-24 14:08] VITALS: BP 121/83; PULSE 92; TEMP 99.4
--- NOTE | 2018-07-24 15:17 | DS ---
Physical Examination Vital Signs: Vital Signs Temperature 99.4 F 07/24/18 14:00 Pulse Rate 92 H 07/24/18 14:00 Respiratory Rate 20 07/24/18 14:00 Blood Pressure 121/83 07/24/18 14:00 O2 Sat by Pulse Oximetry (%) 95 07/24/18 09:00 Labs: CBC, BMP 07/23/18 05:30 07/23/18 05:30 Discharge Summary Reason For Visit: SEIZURE,ACUTE DRUP WITHDRAWAL SYMDROME Current Active Problems Acute drug withdrawal syndrome (Acute) Alcohol withdrawal (Acute) ETOH abuse (Acute) EtOH dependence (Acute) Seizures (Acute) Condition: Stable - Instructions Diet, Activity, Other Instructions: librium protocol per detox attending - Home Medications Comprehensive Discharge Medication List: Ambulatory Orders Levetiracetam [Keppra] 250 mg PO DAILY 07/20/18 Folic Acid - 1 mg PO DAILY tablet 07/24/18 Thiamine HCl [Vitamin B1 -] 100 mg PO DAILY tablet 07/24/18 librium as per detox attending dc to detox/[facility]
[2018-07-25] MEDS ORDERED: chlordiazePOXIDE 5 MG CAPSULE PO SCH (11:00)
[2018-07-26] MEDS ORDERED: chlordiazePOXIDE 5 MG CAPSULE PO SCH (11:00)
== END 2018-07-24 17:21 | disposition other institution (70) | DRG 775 ==
LOC: JER 19:29 → JERBED 20:40 → INTOOBSV 21:44 → OBSVTOIN 21:44 → J4W 07-21 18:18
PROVIDERS: ADMIT Internal Medicine; ATTEND Internal Medicine
DX: F10.230 Alcohol dependence with withdrawal, uncomplicated (principal); G40.909 Epilepsy, unspecified, not intractable, without status epilepticus; E87.2 Acidosis; D69.6 Thrombocytopenia, unspecified; E87.6 Hypokalemia; D72.819 Decreased white blood cell count, unspecified; D73.1 Hypersplenism; Z91.14 Patient's other noncompliance with medication regimen; H11.31 Conjunctival hemorrhage, right eye; D61.818 Other pancytopenia
CPT/HCPCS: 36415; 70450-TC; 71045-TC-FY; 72125-TC; 73560-TC-LT-FY; 76700-TC; 80053; 80177; 80307; 81003; 81015; 82747; 83605; 83735; 84100; 85014; 85025; 85610; 93005; 93010; 97116-GP; 97161-GP; 99285-25; G0378; J7030

== ENCOUNTER 2018-07-24 17:28 | Inpatient (IN) | payer OTHER ==
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
[2018-07-24] MEDS ORDERED: ACETAMINOPHEN 325 MG TABLET (FP) PO PRN (17:53)
[2018-07-24] MEDS ORDERED: MAGNESIUM HYDROX 2400MG/30ML ORAL SUSPENSION 30 ML CUP PO PRN (17:53)
[2018-07-24] MEDS ORDERED: chlordiazePOXIDE HCL 25 MG CAPSULE PO PRN (17:53)
[2018-07-24] MEDS ORDERED: MAG HYDROX/AL HYDROX/SIMETH 30 ML UNIT-DOSE CUP PO PRN (17:53)
[2018-07-24] MEDS ORDERED: MAGNESIUM CITRATE 300 ML BOTTLE PO PRN (17:53)
[2018-07-24] MEDS ORDERED: IBUPROFEN 400 MG TABLET (FP) PO PRN (17:53)
[2018-07-24] MEDS ORDERED: MENTHOL/PHENOL 1 EACH UD MM PRN (17:53)
[2018-07-24 18:09] VITALS: BMI 31.4
[2018-07-24] MEDS: chlordiazePOXIDE 5 MG CAPSULE PO SCH (20:58)
[2018-07-24] MEDS ORDERED: MELATONIN 5 MG TABLETS PO PRN (22:00)
[2018-07-24] MEDS ORDERED: chlordiazePOXIDE HCL 10 MG CAPSULE ONE (22:47)
[2018-07-24] MEDS ORDERED: chlordiazePOXIDE 5 MG CAPSULE ONE (22:47)
[2018-07-24] MEDS: CHLORDIAZEPOXIDE 10 MG, CHLORDIAZEPOXIDE 5 MG PO SCH (22:53)
[2018-07-24] MEDS: THIAMINE HCL 100 MG TABLET (FP) PO SCH (22:53)
[2018-07-24] MEDS: chlordiazePOXIDE HCL 10 MG CAPSULE PO SCH (22:59)
[2018-07-24] MEDS ORDERED: chlordiazePOXIDE HCL 25 MG CAPSULE PO SCH (23:00)
[2018-07-25] MEDS: chlordiazePOXIDE 5 MG CAPSULE PO SCH ×2 (04:15→11:27)
[2018-07-25] MEDS ORDERED: chlordiazePOXIDE HCL 10 MG CAPSULE ONE (04:37)
[2018-07-25] MEDS ORDERED: chlordiazePOXIDE 5 MG CAPSULE ONE (04:37)
[2018-07-25] MEDS: CHLORDIAZEPOXIDE 10 MG, CHLORDIAZEPOXIDE 5 MG PO SCH ×2 (07:09→11:27)
--- NOTE | 2018-07-25 10:32 | PN ---
[facility] CIWA - CIWA Score Nausea/Vomitin-No Nausea/No Vomiting Muscle Tremors: None Anxiety: 1-Mildly Anxious Agitation: 0-Normal Activity Paroxysmal Sweats: No Perspiration Orientation: 1-Uncertain about Date Tacttile Disturbances: 0-None Auditory Disturbances: 0-None Visual Disturbances: 0-None Headache: 0-None Present CIWA-Ar Total Score: 2 [facility] Progress Note (SOAP) Subjective: Pt has been inpt since 07/20/17- was at [facility] and transferred here yesterday. Pt is laying in bed- has no complaints, asking for Keppra O: Vital Signs - 24 hr 07/24/18 07/24/18 07/25/18 17:33 22:51 03:30 Temperature 98.6 F 97.9 F Pulse Rate 89 100 H Respiratory 18 20 18 Rate Blood Pressure 144/89 138/85 07/25/18 07/25/18 08:53 09:52 Temperature 98.2 F 99 F Pulse Rate 84 88 Respiratory 18 20 Rate Blood Pressure 153/92 143/77 pt has noticeable lump of R forehead area R eye difficult to open due to swelling of forehead a/p alcohol detox: today is day #6 of alcohol detox- rec'd benzo at [facility] continue detox protocol on Keppra 250mg day. Pt does not have usual dose of keppra- no PCP/pharmacy info
[2018-07-25] MEDS ORDERED: chlordiazePOXIDE HCL 25 MG CAPSULE PO PRN (11:15)
[2018-07-25] MEDS: chlordiazePOXIDE HCL 10 MG CAPSULE PO SCH (11:27)
[2018-07-25] MEDS: PRENATAL VITAMINS W/ FOLIC ACID TABLET (FP) PO SCH (11:29)
[2018-07-25] MEDS: levETIRAcetam 250 MG TABLET (FP) PO SCH (11:29)
[2018-07-25] MEDS: THIAMINE HCL 100 MG TABLET (FP) PO SCH (22:57)
[2018-07-25] MEDS ORDERED: chlordiazePOXIDE HCL 10 MG CAPSULE PO SCH (23:00)
[2018-07-26] MEDS: PRENATAL VITAMINS W/ FOLIC ACID TABLET (FP) PO SCH (11:09)
[2018-07-26] MEDS: levETIRAcetam 250 MG TABLET (FP) PO SCH (11:09)
--- NOTE | 2018-07-26 13:53 | PN ---
[facility] CIWA - CIWA Score Nausea/Vomitin-No Nausea/No Vomiting Muscle Tremors: None Anxiety: 1-Mildly Anxious Agitation: 0-Normal Activity Paroxysmal Sweats: No Perspiration Orientation: 0-Oriented Tacttile Disturbances: 2-Mild Itch/Numbness/Burn Auditory Disturbances: 0-None Visual Disturbances: 0-None Headache: 2-Mild CIWA-Ar Total Score: 5 [facility] Progress Note (SOAP) Subjective: PATIENT C/O INTERMITTENT HEADACHE, NUMBNESS/TINGLING TO FEET AND INTERRUPTED SLEEP. Objective: 07/26/18 13:51 Vital Signs Temperature 99.5 F 07/26/18 09:41 Pulse Rate 89 07/26/18 09:41 Respiratory Rate 18 07/26/18 09:41 Blood Pressure 147/92 07/26/18 09:41 O2 Sat by Pulse Oximetry (%) Laboratory Tests 07/25/18 08:20 RPR Titer Nonreactive PE: ALERT AND ORIENTED X 3 SKIN WARM AND DRY NEURO: +PERRLA, EOMS INTACT BL RIGHT SUPERIOR EYEBROW SWELLING, NON-TENDER EXT NO TREMORS Assessment: 07/26/18 13:53 WITHDRAWAL SX Plan: CONTINUE DETOX ENCOURAGE ORAL FLUIDS CONTINUE TO MONITOR CLINICALLY.
[2018-07-26] MEDS: THIAMINE HCL 100 MG TABLET (FP) PO SCH (23:04)
--- NOTE | 2018-07-27 08:54 | DS ---
[facility] Detox Discharge Summary Admission Date: 07/24/18 Discharge Date: 07/27/18 - History Present History: Alcohol Dependence - Physical Exam Results Vital Signs: Vital Signs Temperature 98.4 F 07/27/18 07:33 Pulse Rate 81 07/27/18 07:33 Respiratory Rate 18 07/27/18 07:33 Blood Pressure 138/83 07/27/18 07:33 O2 Sat by Pulse Oximetry (%) - Treatment Hospital Course: Detox Protocol Followed, Detoxed Safely, Responded well, Discharged Condition Good, Rehab Referral Accepted - Medication Discharge Medications: Ambulatory Orders Levetiracetam [Keppra] 250 mg PO DAILY 07/20/18 Folic Acid - 1 mg PO DAILY tablet 07/24/18 Thiamine HCl [Vitamin B1 -] 100 mg PO DAILY tablet 07/24/18 - Diagnosis (1) Alcohol withdrawal Current Visit: Yes Status: Chronic Qualifiers: Complication of substance-induced condition: uncomplicated Qualified Code(s ): F10.230 - Alcohol dependence with withdrawal, uncomplicated (2) Seizures Current Visit: No Status: Chronic - AMA Did Patient Leave Against Medical Advice: No (going home)
[2018-07-27 10:00] VITALS: BP 127/76; PULSE 88; TEMP 97.5
[2018-07-27] MEDS: levETIRAcetam 250 MG TABLET (FP) PO SCH (10:25)
[2018-07-27] MEDS: PRENATAL VITAMINS W/ FOLIC ACID TABLET (FP) PO SCH (10:25)
--- NOTE | 2018-07-27 11:12 | PN ---
S Progress Note Note: a large bump noted on pt d/t fall previous days ago. pt is aaox3. pt is getting p/u and going home to family. pt is stable to be released.
== END 2018-07-27 11:58 | disposition home or self-care (01) | DRG 775 ==
LOC: YASAS 17:28 → Y6N 17:52
PROVIDERS: ADMIT Surgery; ATTEND Surgery
PROC: HZ2ZZZZ Detoxification Services for Substance Abuse Treatment (ICD-10-PCS; principal; 2018-07-24)
DX: F10.230 Alcohol dependence with withdrawal, uncomplicated (principal); G40.909 Epilepsy, unspecified, not intractable, without status epilepticus; R22.0 Localized swelling, mass and lump, head; Z91.14 Patient's other noncompliance with medication regimen
CPT/HCPCS: 36415; 86593